=== PATIENT | female | born 1995 | race Two or more races ===

== ENCOUNTER 2022-06-17 21:28 | Inpatient (IN) | payer OTHER, SELFPAY ==
[2022-06-17 21:43] VITALS: BP 112/75; PULSE 84; RESP 18; TEMP 36.8; O2SAT 98; BMI 38.3
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
[2022-06-17 23:30] LABS: MANUAL DIFF FLAG NO
[2022-06-17 23:33] LABS: Basophils Percent Auto 0.4 % (0-2); Eosinophils Absolute Auto 0.1 X10*3/uL (0.0-0.4); Eosinophils Percent Auto 2.4 % (0-4); Hematocrit 39.7 % (37.0-47.0); Hemoglobin 12.9 g/dl (12.0-16.0); Imm Gran Abs Auto 0.02 X10*3/uL (0.00-0.03); Imm Gran Pct Auto 0.4 % (0.0-0.4); Lymphocytes Absolute Auto 1.8 X10*3/uL (1.2-4.9); Lymphocytes Percent Auto 39.5 % (20-40); Mean Corpuscular HGB Conc 32.5 g/dl (31.0-35.0); Mean Corpuscular Hemoglobin 28.9 pg (27.0-33.0); Mean Corpuscular Volume 88.8 fL (80.0-98.0); Mean Platelet Volume 13.2 fL (9.4-12.3); Monocytes Absolute Auto 0.4 X10*3/uL (0.1-1.2); Monocytes Percent Auto 9.3 % (2-11); Neutrophils Absolute Auto 2.2 x10*3/uL (2.0-8.3); Platelet Count 142 X10*3/uL (160-400); Red Blood Count 4.47 X10*6/uL (4.20-5.50); Red Cell Distribution Width 13.1 % (11.0-16.0); White Blood Count 4.5 X10*3/uL (4.8-10.8)
[2022-06-17 23:40] LABS: Appearance Urine Clear; Color Urine Yellow; Glucose Urine UA Negative (Negative); Leukocyte Esterase Urine Negative (Negative); Nitrite Urine Negative (Negative); PH 7.5 (5.0-9.0); Specific Gravity - Urine <= 1.005 (1.005-1.025); Urine Blood Negative (Negative); Urine Ketones Negative (Negative); Urine Protein Negative (Neg-Trace)
[2022-06-17 23:44] LABS: UPreg QC Valid YES; Urine Pregnancy NEGATIVE (NEGATIVE)
[2022-06-17 23:48] LABS: Valproate < 12.5 mcg/mL (50.0-100.0)
[2022-06-17 23:50] LABS: Alanine Aminotransferase 18 U/L (0-31); Alkaline Phosphatase 73 U/L (39-117); Anion Gap 11 (12-20); Aspartate Amino Transferase 19 U/L (5-31); Bilirubin Total 0.3 mg/dL (0.0-1.0); Blood Urea Nitrogen 6 mg/dL (9-16); Calcium 8.9 mg/dL (8.4-10.2); Carbon Dioxide 24 mmol/L (22-29); Chloride 108 mmol/L (96-108); Estimated Glomerular Filt Rate > 60; Ethanol < 10 mg/dL; Glucose Random 87 mg/dL (60-115); Sodium 139 mmol/L (135-145); Total Protein 6.9 g/dL (6.5-8.0)
[2022-06-17 23:58] LABS: COVID-19 Test Negative (Negative); IDNOW Serial# BCCEAD1C
[2022-06-18 00:14] LABS: Amphetamine Screen Urine Not Detected (Not Detect); Barbiturates, Urine Not Detected (Not Detect); Benzodiazepines Screen Urine Not Detected (Not Detect); Cannabinoid Screen Urine POSITIVE (Not Detect); Cocaine Screen Urine Not Detected (Not Detect); Fentanyl, urine Not Detected (Not Detect); Opiate Screen Urine Not Detected (Not Detect); Phencyclidine Screen Urine Not Detected (Not Detect)
[2022-06-18] MEDS: LORazepam 1 MG TABLET 2 MG PO ×2 (00:31→21:19)
[2022-06-18] MEDS: diphenhydrAMINE HCL 25 MG CAPSULE 50 MG PO (00:31)
[2022-06-18] MEDS: OLANZapine 10 MG TABLET PO ×2 (00:31→21:20)
--- NOTE | 2022-06-18 00:58 | ED_ITS ---
HPI - General Adult General Chief complaint: General Medical Stated complaint: crisis Time Seen by Provider: 06/17/22 22:19 Source: patient and RN notes reviewed Mode of arrival: ambulatory History of Present Illness HPI narrative: . Patient with History of depression/bipolar disorder seen by [facility] in the failed advised to go to the hospital to get evaluated. Patient denies any SI/HI/hallucination Related Data Home Medications Medication Instructions Recorded Confirmed meloxicam 15 mg tablet 15 mg PO DAILY PRN moderate pain 06/17/22 06/17/22 olanzapine 5 mg tablet 5 mg PO BEDTIME 06/17/22 06/17/22 tizanidine 2 mg tablet 2 mg PO TID PRN moderate pain 06/17/22 06/17/22 Allergies Allergy/AdvReac Type Severity Reaction Status Date / Time amoxicillin Allergy Rash Verified 06/17/22 21:43 clindamycin Allergy Rash Verified 06/17/22 21:43 NSAIDS (Non-Steroidal Allergy Rash Verified 06/17/22 21:43 Anti-Inflamma Review of Systems Review of Systems: Yes all other systems are reviewed and are negative [facility] Social History Social History Advance Directives: No Advance Directives Information Provided: No Physical Exam ED Vital Signs: Vital Signs - 24 hr 06/17/22 21:43 Temperature 98.3 F Pulse Rate 84 Respiratory Rate 18 Blood Pressure 112/75 Pulse Oximetry 98 Oxygen Delivery Method Room Air BMI result Body Mass Index 38.3 Appearance: Alert. Oriented X3. No acute distress. Eyes: PERRLA, No Nystagmus ENT: Pharynx normal. Oral Mucosa moist Neck: Normal inspection. Neck supple. CVS: Normal heart rate and rhythm. Pulses normal. Respiratory: No respiratory distress. Equal air entry bilateral, no wheezing/rales/rhonchi Abdomen: Soft and nontender. Bowel sounds are present, no mass palpable, no CVA tenderness Skin: Skin warm and dry. Normal skin color. Normal skin turgor. Extremities: No lower extremity edema. No calf tenderness psych:, cooperative depressed denied any SI or HI no hallucination Neuro: Oriented X 3. No motor deficit. No sensory deficit.No cerebellar signs , cranial nerves II-XII intact Medications Administered Discontinued Medications Generic Name Dose Route Start Last Admin Trade Name Freq PRN Reason Stop Dose Admin Diphenhydramine HCl 50 mg 05/10/23 00:27 06/18/22 00:31 Diphenhydramine Hcl 25 Mg Capsule PO 06/18/22 00:28 50 mg ONCE ONE Administration Lorazepam 2 mg 06/18/22 00:27 06/18/22 00:31 Lorazepam 1 Mg Tablet PO 06/18/22 00:28 2 mg ONCE ONE Administration Olanzapine 10 mg 06/18/22 00:20 06/18/22 00:31 Olanzapine 10 Mg Tablet PO 06/18/22 00:21 10 mg ONCE ONE Administration Medical Decision Making Medical Decision Making MDM Narrative: Patient to be seen by care team bipolar disorder of medication adjustment Lab Data MDM Lab Attestation statement: I reviewed the patient's lab results. 06/17/22 23:25 06/17/22 23:25 Labs: Lab Results 06/17/22 06/17/22 06/17/22 Range/Units 23:08 23:08 23:08 WBC (4.8-10.8) X10*3/uL RBC (4.20-5.50) X10*6/uL Hgb (12.0-16.0) g/dl Hct (37.0-47.0) % MCV (80.0-98.0) fL MCH (27.0-33.0) pg MCHC (31.0-35.0) g/dl RDW (11.0-16.0) % Plt Count (160-400) X10*3/uL MPV (9.4-12.3) fL Immature Gran % (Auto) (0.0-0.4) % Neut % (Auto) (45-73) % Lymph % (Auto) (20-40) % Saunders % (Auto) (2-11) % Eos % (Auto) (0-4) % Baso % (Auto) (0-2) % Lymph # (Auto) (1.2-4.9) X10*3/uL Saunders # (Auto) (0.1-1.2) X10*3/uL Eos # (Auto) (0.0-0.4) X10*3/uL Baso # (Auto) (0.0-0.2) X10*3/uL Abs Immat Gran (auto) (0.00-0.03) X10*3/uL Absolute Neuts (auto) (2.0-8.3) x10*3/uL Absolute Nucleated RBC (0.0-0.012) X10*3/uL Nucleated RBC % (auto) (0.0-0.2) /100WBC Sodium (135-145) mmol/L Potassium (3.3-5.1) mmol/L Chloride (96-108) mmol/L Carbon Dioxide (22-29) mmol/L Anion Gap (12-20) BUN (9-16) mg/dL Creatinine (0.5-1.4) mg/dL Estim Creat Clear Calc Estimated GFR Random Glucose (60-115) mg/dL Calcium (8.4-10.2) mg/dL Total Bilirubin (0.0-1.0) mg/dL AST (5-31) U/L ALT (0-31) U/L Alkaline Phosphatase (39-117) U/L Total Protein (6.5-8.0) g/dL Albumin (3.5-5.0) g/dL Urine Color Yellow Urine Appearance Clear Urine pH 7.5 (5.0-9.0) Ur Specific [place] <= 1.005 (1.005-1.025) Urine Protein Negative (Neg-Trace) mg/dL Urine Glucose (UA) Negative (Negative) mg/dL Urine Ketones Negative (Negative) mg/dL Urine Blood Negative (Negative) Urine Nitrite Negative (Negative) Ur Leukocyte Esterase Negative (Negative) Urine Test (NEGATIVE) Urine Opiates Screen Not Detected (Not Detect) Urine Fentanyl Screen Not Detected (Not Detect) Ur Barbiturates Screen Not Detected (Not Detect) Valproic Acid (50.0-100.0) mcg/mL Ur Phencyclidine Scrn Not Detected (Not Detect) Ur Amphetamines Screen Not Detected (Not Detect) U Benzodiazepines Scrn Not Detected (Not Detect) Urine Cocaine Screen Not Detected (Not Detect) U Marijuana (THC) Screen POSITIVE H (Not Detect) Ethyl Alcohol mg/dL COVID-19 (MAGALY) Negative (Negative) COVID-19 Clin Com See Note 06/17/22 06/17/22 06/17/22 Range/Units 23:08 23:25 23:25 WBC 4.5 L (4.8-10.8) X10*3/uL RBC 4.47 (4.20-5.50) X10*6/uL Hgb 12.9 (12.0-16.0) g/dl Hct 39.7 (37.0-47.0) % MCV 88.8 (80.0-98.0) fL MCH 28.9 (27.0-33.0) pg MCHC 32.5 (31.0-35.0) g/dl RDW 13.1 (11.0-16.0) % Plt Count 142 L (160-400) X10*3/uL MPV 13.2 H (9.4-12.3) fL Immature Gran % (Auto) 0.4 (0.0-0.4) % Neut % (Auto) 48.0 (45-73) % Lymph % (Auto) 39.5 (20-40) % Saunders % (Auto) 9.3 (2-11) % Eos % (Auto) 2.4 (0-4) % Baso % (Auto) 0.4 (0-2) % Lymph # (Auto) 1.8 (1.2-4.9) X10*3/uL Saunders # (Auto) 0.4 (0.1-1.2) X10*3/uL Eos # (Auto) 0.1 (0.0-0.4) X10*3/uL Baso # (Auto) 0.0 (0.0-0.2) X10*3/uL Abs Immat Gran (auto) 0.02 (0.00-0.03) X10*3/uL Absolute Neuts (auto) 2.2 (2.0-8.3) x10*3/uL Absolute Nucleated RBC 0.000 (0.0-0.012) X10*3/uL Nucleated RBC % (auto) 0.0 (0.0-0.2) /100WBC Sodium 139 (135-145) mmol/L Potassium 4.0 (3.3-5.1) mmol/L Chloride 108 (96-108) mmol/L Carbon Dioxide 24 (22-29) mmol/L Anion Gap 11 L (12-20) BUN 6 L (9-16) mg/dL Creatinine 0.74 (0.5-1.4) mg/dL Estim Creat Clear Calc 138.0 Estimated GFR > 60 Random Glucose 87 (60-115) mg/dL Calcium 8.9 (8.4-10.2) mg/dL Total Bilirubin 0.3 (0.0-1.0) mg/dL AST 19 (5-31) U/L ALT 18 (0-31) U/L Alkaline Phosphatase 73 (39-117) U/L Total Protein 6.9 (6.5-8.0) g/dL Albumin 4.0 (3.5-5.0) g/dL Urine Color Urine Appearance Urine pH (5.0-9.0) Ur Specific [place] (1.005-1.025) Urine Protein (Neg-Trace) mg/dL Urine Glucose (UA) (Negative) mg/dL Urine Ketones (Negative) mg/dL Urine Blood (Negative) Urine Nitrite (Negative) Ur Leukocyte Esterase (Negative) Urine Test NEGATIVE (NEGATIVE) Urine Opiates Screen (Not Detect) Urine Fentanyl Screen (Not Detect) Ur Barbiturates Screen (Not Detect) Valproic Acid (50.0-100.0) mcg/mL Ur Phencyclidine Scrn (Not Detect) Ur Amphetamines Screen (Not Detect) U Benzodiazepines Scrn (Not Detect) Urine Cocaine Screen (Not Detect) U Marijuana (THC) Screen (Not Detect) Ethyl Alcohol < 10 mg/dL COVID-19 (MAGALY) (Negative) COVID-19 Clin Com 06/17/22 Range/Units 23:25 WBC (4.8-10.8) X10*3/uL RBC (4.20-5.50) X10*6/uL Hgb (12.0-16.0) g/dl Hct (37.0-47.0) % MCV (80.0-98.0) fL MCH (27.0-33.0) pg MCHC (31.0-35.0) g/dl RDW (11.0-16.0) % Plt Count (160-400) X10*3/uL MPV (9.4-12.3) fL Immature Gran % (Auto) (0.0-0.4) % Neut % (Auto) (45-73) % Lymph % (Auto) (20-40) % Saunders % (Auto) (2-11) % Eos % (Auto) (0-4) % Baso % (Auto) (0-2) % Lymph # (Auto) (1.2-4.9) X10*3/uL Saunders # (Auto) (0.1-1.2) X10*3/uL Eos # (Auto) (0.0-0.4) X10*3/uL Baso # (Auto) (0.0-0.2) X10*3/uL Abs Immat Gran (auto) (0.00-0.03) X10*3/uL Absolute Neuts (auto) (2.0-8.3) x10*3/uL Absolute Nucleated RBC (0.0-0.012) X10*3/uL Nucleated RBC % (auto) (0.0-0.2) /100WBC Sodium (135-145) mmol/L Potassium (3.3-5.1) mmol/L Chloride (96-108) mmol/L Carbon Dioxide (22-29) mmol/L Anion Gap (12-20) BUN (9-16) mg/dL Creatinine (0.5-1.4) mg/dL Estim Creat Clear Calc Estimated GFR Random Glucose (60-115) mg/dL Calcium (8.4-10.2) mg/dL Total Bilirubin (0.0-1.0) mg/dL AST (5-31) U/L ALT (0-31) U/L Alkaline Phosphatase (39-117) U/L Total Protein (6.5-8.0) g/dL Albumin (3.5-5.0) g/dL Urine Color Urine Appearance Urine pH (5.0-9.0) Ur Specific [place] (1.005-1.025) Urine Protein (Neg-Trace) mg/dL Urine Glucose (UA) (Negative) mg/dL Urine Ketones (Negative) mg/dL Urine Blood (Negative) Urine Nitrite (Negative) Ur Leukocyte Esterase (Negative) Urine Test (NEGATIVE) Urine Opiates Screen (Not Detect) Urine Fentanyl Screen (Not Detect) Ur Barbiturates Screen (Not Detect) Valproic Acid < 12.5 L (50.0-100.0) mcg/mL Ur Phencyclidine Scrn (Not Detect) Ur Amphetamines Screen (Not Detect) U Benzodiazepines Scrn (Not Detect) Urine Cocaine Screen (Not Detect) U Marijuana (THC) Screen (Not Detect) Ethyl Alcohol mg/dL COVID-19 (MAGALY) (Negative) COVID-19 Clin Com Discharge Plan Discharge Clinical Impression: Bipolar 1 disorder, mixed Patient Disposition: Still a Patient Prescriptions: No Action tizanidine 2 mg tablet 2 mg PO TID PRN (Reason: moderate pain) meloxicam 15 mg tablet 15 mg PO DAILY PRN (Reason: moderate pain) olanzapine 5 mg tablet 5 mg PO BEDTIME
--- NOTE | 2022-06-18 04:35 | PC.NURSE ---
Patient slept through the night, no distress observed/reported, patient exhibiting dysregulated behavior secondary to non med-compliant, med rec completed/pending provider's approval, Olanzapine 10 mg po, Ativan 2 mg po, and Benadryl 50 mg po administered with + effect, VSS, labs completed/resulted, disposition per [facility] from community is section inpatient bed search, will continue to monitor.
[2022-06-18 06:15] VITALS: BP 89/51; PULSE 72; RESP 18; TEMP 36.6; O2SAT 99
--- NOTE | 2022-06-18 08:23 | ECG_ITS ---
Test Reason : PROLONGED QT Blood Pressure : / mmHG Vent. Rate : 069 BPM Atrial Rate : 069 BPM P-R Int : 138 ms QRS Dur : 084 ms QT Int : 402 ms P-R-T Axes : 050 026 065 degrees QTc Int : 430 ms Sinus rhythm with marked sinus arrhythmia Otherwise normal ECG No previous ECGs available Referred By: Beau Monroy Electronically Signed By:CHRISTIANO GUO
[2022-06-18] MEDS: Divalproex Sodium ER 500 MG TAB.ER.24H PO (09:23)
--- NOTE | 2022-06-18 11:30 | PC.NURSE ---
Pt calm and cooperative. Reports depression. Having AH/VH. Pt spoke with Mother on phone, took shower, took meds. ate breakfast, is especially fond of [place] with crumbled Gram Crackers
[2022-06-18] MEDS: Nicotine Polacrilex 2 MG GUM BUCCAL ×2 (11:58→19:44)
[2022-06-18 16:47] VITALS: BP 97/68; PULSE 57; RESP 16; TEMP 36.5; O2SAT 96
[2022-06-18 17:57] VITALS: BP 106/64; PULSE 80; RESP 18; TEMP 36.6; O2SAT 96; BMI 37.1
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
[2022-06-18] MEDS: hydrOXYzine HCL 25 MG TABLET PO (18:48)
[2022-06-18] MEDS: TiZANidine HCL 4 MG TABLET 2 MG PO (18:48)
[2022-06-18] MEDS: NaPROXEN 500 MG TABLET PO (18:48)
[2022-06-18] MEDS: OLANZapine 5 MG TABLET PO (21:20)
[2022-06-18] MEDS: Acetaminophen 325 MG TABLET 650 MG PO (21:54)
[2022-06-19] MEDS: Magnesium Hydrox/Alum Hydrox 30 ML ORAL.SUSP PO (02:36)
[2022-06-19] MEDS: hydrOXYzine HCL 25 MG TABLET PO (02:36)
[2022-06-19] MEDS: LORazepam 1 MG TABLET 2 MG PO (02:42)
[2022-06-19] MEDS: OLANZapine 10 MG TABLET PO (02:43)
--- NOTE | 2022-06-19 02:54 | PC.NURSE ---
Patient in shower at this time, reported she vomited in the shower. Patient was given Maalox, Atarax PO prn, Ativan PO prn, and Zyprexa 10 mg PO prn 5 minutes afterwards.
[2022-06-19] MEDS: Ondansetron ODT 8 MG TAB.RAPDIS TRANSLINGU (03:22)
[2022-06-19 09:08] LABS: Estimated Average Glucose 97 mg/dL
[2022-06-19 09:32] LABS: Alanine Aminotransferase 17 U/L (0-31); Albumin Level 3.4 g/dL (3.5-5.0); Alkaline Phosphatase 69 U/L (39-117); Anion Gap 9 (12-20); Aspartate Amino Transferase 17 U/L (5-31); Bilirubin Total 0.2 mg/dL (0.0-1.0); Blood Urea Nitrogen 10 mg/dL (9-16); Calcium 8.8 mg/dL (8.4-10.2); Carbon Dioxide 27 mmol/L (22-29); Chloride 109 mmol/L (96-108); Cholesterol 110 mg/dL; Estimated Glomerular Filt Rate > 60; Glucose Fasting 89 mg/dL (60-99); HDL Cholesterol 32 mg/dL; LDL Cholesterol Calculated 59 mg/dl; Potassium 4.6 mmol/L (3.3-5.1); Sodium 140 mmol/L (135-145); Triglycerides 96 mg/dL
[2022-06-19 10:01] LABS: Folate 5.5 ng/mL (> or = 4.0); Free T4 (Free Thyroxine) 0.95 ng/dL (0.71-1.85); Thyroid Stimulating Hormone 1.31 uIU/mL (0.32-4.0); Vitamin B12 571 pg/mL (200-900)
[2022-06-19 12:00] VITALS: BP 103/61; PULSE 106; RESP 18; TEMP 36.6; O2SAT 99
[2022-06-19] MEDS: Divalproex Sodium ER 500 MG TAB.ER.24H PO ×2 (12:07→21:27)
[2022-06-19] MEDS: Nicotine Polacrilex 2 MG GUM BUCCAL ×3 (12:23→21:43)
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
[2022-06-19] MEDS: TiZANidine HCL 4 MG TABLET 2 MG PO ×2 (16:22→23:15)
[2022-06-19 18:00] VITALS: BP 97/53; PULSE 79; RESP 18; TEMP 36.6; O2SAT 99
[2022-06-19] MEDS: OLANZapine 5 MG TABLET PO (21:27)
[2022-06-19] MEDS: Clotrimazole 1 % Vaginal Cream 45 GM TUBE 1 APPL VAGINAL (21:43)
[2022-06-19] MEDS: traZODone HCL 50 MG TABLET PO (23:15)
[2022-06-20] MEDS: TiZANidine HCL 4 MG TABLET 2 MG PO ×3 (06:57→21:59)
[2022-06-20] MEDS: Acetaminophen 325 MG TABLET 975 MG PO ×2 (06:59→15:34)
[2022-06-20] MEDS: hydrOXYzine HCL 25 MG TABLET PO ×2 (06:59→22:02)
[2022-06-20 08:20] VITALS: BP 93/61; PULSE 110; RESP 18; TEMP 36.6; O2SAT 97
[2022-06-20] MEDS: LORazepam 1 MG TABLET 2 MG PO (11:23)
[2022-06-20] MEDS: Nicotine Polacrilex 2 MG GUM BUCCAL ×2 (11:28→21:59)
[2022-06-20 14:47] LABS: UPreg QC Valid YES; Urine Pregnancy NEGATIVE (NEGATIVE)
--- NOTE | 2022-06-20 15:34 | P.PNPSI_ITS ---
Subjective Subjective Date of Service: 06/20/22 Reason For Visit: Psychosis Interim History: pt much more organized and less labile than yesterday, however continues to be severely impaired. initially says she wants to be on invega sustenna, then says no oral invega only, then wants to stay on zyprexa. notes her VPA dose is too low as well, pt agrees to increase it from 500 mg daily to 1500 mg daily. concerned she is , asking questions about safety of use of medications during . visit with her mother today. per staff, both pt and mother were agitated and yelling at them around limit-setting (eating in the room). 3- day up thursday. pleasant. c/o anxiety. c/o pain/bleeding s/p removal of IUD. feels improved on meds. Mental Status Exam Mental Status Exam Narrative: disheveled, calm, cooperative. no PMA, general PMR, alert. speech decr rate, nml amount, nml loudness. nml latency. thoughts more organized. affect constricted. no SI/HI/AVH expressed. Diagnostics Vital Signs (24Hr): Vital Signs - 24 hr 06/19/22 18:00 06/20/22 08:20 Temperature 97.9 F 97.9 F Pulse Rate 79 110 H Respiratory Rate 18 18 Blood Pressure 97/53 L 93/61 Pulse Oximetry 99 97 Oxygen Delivery Method Room Air Room Air BMI result Body Mass Index 37.1 Labs 06/17/22 23:25 06/19/22 08:41 Labs: Laboratory Results - last 48 hr 06/19/22 06/19/22 06/20/22 08:41 08:41 14:00 Sodium 140 Potassium 4.6 Chloride 109 H Carbon Dioxide 27 Anion Gap 9 L BUN 10 Creatinine 0.68 Estim Creat Clear Calc 153.0 Estimated GFR > 60 Fasting Glucose 89 Estimat Average Glucose 97 Hemoglobin A1c % 5.0 Calcium 8.8 Total Bilirubin 0.2 AST 17 ALT 17 Alkaline Phosphatase 69 Total Protein 6.0 L Albumin 3.4 L Triglycerides 96 Cholesterol 110 LDL Cholesterol, Calc 59 HDL Cholesterol 32 Vitamin B12 571 Folate 5.5 TSH 1.31 Free T4 0.95 Urine Test NEGATIVE Medications Medications Current Medications Acetaminophen (Acetaminophen 325 Mg Tablet) 975 mg PO Q6H PRN PRN Reason: Pain, Moderate(Pain Scale 4-6) Last Admin: 06/20/22 06:59 Dose: 975 mg Al Hydroxide/Mg Hydroxide (Magnesium Hydrox/Alum Hydrox 30 Ml Oral.Susp) 30 ml PO Q6H PRN PRN Reason: Heartburn/Nausea Last Admin: 06/19/22 02:36 Dose: 30 ml Clotrimazole (Clotrimazole 1 % Vaginal Cream 45 Gm Tube) 1 appl VAGINAL BEDTIME SHELLI Stop: 06/25/22 21:01 Last Admin: 06/19/22 21:43 Dose: 1 appl Divalproex Sodium (Divalproex Sodium Er 500 Mg Tab.Er.24h) 1,500 mg PO BEDTIME SHELLI Hydroxyzine HCl (Hydroxyzine Hcl 25 Mg Tablet) 25 mg PO Q6H PRN PRN Reason: Anxiety Last Admin: 06/20/22 06:59 Dose: 25 mg Magnesium Hydroxide (Milk Of Magnesia 30 Ml Oral.Susp) 30 ml PO DAILY PRN PRN Reason: Constipation Nicotine Polacrilex (Nicotine Polacrilex 2 Mg Gum) 2 mg BUCCAL ONCE PRN PRN Reason: Nicotine Cravings Last Admin: 06/20/22 11:28 Dose: 2 mg Nicotine Polacrilex (Nicotine Polacrilex 2 Mg Gum) 2 mg BUCCAL Q2H PRN PRN Reason: Nicotine Cravings Last Admin: 06/19/22 21:43 Dose: 2 mg Olanzapine (Olanzapine 10 Mg Tablet) 10 mg PO BEDTIME SHELLI Tizanidine HCl (Tizanidine Hcl 4 Mg Tablet) 2 mg PO TID PRN PRN Reason: moderate pain Last Admin: 06/20/22 06:57 Dose: 2 mg Trazodone HCl (Trazodone Hcl 50 Mg Tablet) 50 mg PO BEDTIME MRX1 PRN PRN Reason: Insomnia Last Admin: 06/19/22 23:15 Dose: 50 mg Allergies Allergies Allergy/AdvReac Type Severity Reaction Status Date / Time amoxicillin Allergy Rash Verified 06/17/22 21:43 clindamycin Allergy Rash Verified 06/17/22 21:43 NSAIDS (Non-Steroidal Allergy Rash Verified 06/17/22 21:43 Anti-Inflamma Assessment & Plan Assessment & Plan (1) Bipolar 1 disorder, mixed: Status: Acute Code(s): F31.60 - Bipolar disorder, current episode mixed, unspecified Plan 06/19: restart VPA 500 mg daily and zyprexa 5 mg QHS. change depakote to HS. supportive care otherwise. 06/20: increase VPA at HS to 1500 mg. increase zyprexa at HS to 10 mg. more linear, logical, and organized than yesterday, although not well. Patient educated on: diagnosis and medication risk/benefits Reason for continued inpatient stay Substantial Risk for: inability to function and rapid decompensation Time Spent With Patient Time: Total time managing care of this patient today __25__ minutes.
[2022-06-20 21:23] VITALS: BP 106/59; PULSE 117; RESP 18; TEMP 36.3; O2SAT 97
[2022-06-20] MEDS: traZODone HCL 50 MG TABLET PO (21:59)
[2022-06-20] MEDS: OLANZapine 10 MG TABLET PO (22:00)
[2022-06-20] MEDS: Divalproex Sodium ER 500 MG TAB.ER.24H 1500 MG PO (22:01)
[2022-06-20] MEDS: Clotrimazole 1 % Vaginal Cream 45 GM TUBE 1 APPL VAGINAL (22:02)
[2022-06-21] MEDS: Acetaminophen 325 MG TABLET 975 MG PO ×2 (06:23→12:36)
[2022-06-21] MEDS: TiZANidine HCL 4 MG TABLET 2 MG PO ×3 (06:24→22:03)
[2022-06-21] MEDS: Nicotine Polacrilex 2 MG GUM BUCCAL ×2 (06:26→20:22)
[2022-06-21 09:45] VITALS: BP 90/55; PULSE 83; RESP 16; TEMP 36.8; O2SAT 94
--- NOTE | 2022-06-21 10:12 | HO.PSYCHPN ---
Subjective Subjective Date of Service: 06/21/22 Reason For Visit: Psychosis Subjective Notes: 3 Day Healthcare Proxy: No Guardianship: No Medical Problems Affecting Mental Status: Yes (back pain) Interim History: Pt was agitated and manic, according to nursing- pt now slept - Telling provider she wants to be transfered to another hospital - told her that is not generally done- pt was last at [facility] Denies si/hi/psychosis but appears guarded, Medication Compliance: Yes Side effects from medications: No Attending Groups: No Review of Systems Acute medical concerns: No back pain not new Mental Status Exam Mental Status Exam Patient Appearance: Unkempt Patient Orientation: Person, Place and Situation Level of Consciousness: Awake Patient Behavior: Guarded, Resistive to Care and Good Eye Contact Mood Description: Calm and Suspicious Affect Description: Apprehensive Patient Cognition Impaired: No Ability to Follow Directions: Fair Speech Pattern: Clear and Impoverished Hallucinations: Auditory Thought Process: Goal Oriented Thought Content: positive for Intact Depressive Symptoms: Increased Anxiety, Muscle Tension and Back Pain Judgement: Fair Diagnostics Vital Signs (24Hr): Vital Signs - 24 hr 06/20/22 21:23 Temperature 97.4 F Pulse Rate 117 H Respiratory Rate 18 Blood Pressure 106/59 L Pulse Oximetry 97 Oxygen Delivery Method Room Air BMI result Body Mass Index 37.1 Labs 06/17/22 23:25 06/19/22 08:41 Labs: Laboratory Results - last 48 hr 06/20/22 14:00 Urine Test NEGATIVE Medications Medications Current Medications Acetaminophen (Acetaminophen 325 Mg Tablet) 975 mg PO Q6H PRN PRN Reason: Pain, Moderate(Pain Scale 4-6) Last Admin: 06/21/22 06:23 Dose: 975 mg Al Hydroxide/Mg Hydroxide (Magnesium Hydrox/Alum Hydrox 30 Ml Oral.Susp) 30 ml PO Q6H PRN PRN Reason: Heartburn/Nausea Last Admin: 06/19/22 02:36 Dose: 30 ml Clotrimazole (Clotrimazole 1 % Vaginal Cream 45 Gm Tube) 1 appl VAGINAL BEDTIME SHELLI Stop: 06/25/22 21:01 Last Admin: 06/20/22 22:02 Dose: 1 appl Divalproex Sodium (Divalproex Sodium Er 500 Mg Tab.Er.24h) 1,500 mg PO BEDTIME SHELLI Last Admin: 06/20/22 22:01 Dose: 1,500 mg Hydroxyzine HCl (Hydroxyzine Hcl 25 Mg Tablet) 25 mg PO Q6H PRN PRN Reason: Anxiety Last Admin: 06/20/22 22:02 Dose: 25 mg Magnesium Hydroxide (Milk Of Magnesia 30 Ml Oral.Susp) 30 ml PO DAILY PRN PRN Reason: Constipation Nicotine Polacrilex (Nicotine Polacrilex 2 Mg Gum) 2 mg BUCCAL ONCE PRN PRN Reason: Nicotine Cravings Last Admin: 06/20/22 21:59 Dose: 2 mg Nicotine Polacrilex (Nicotine Polacrilex 2 Mg Gum) 2 mg BUCCAL Q2H PRN PRN Reason: Nicotine Cravings Last Admin: 06/21/22 06:26 Dose: 2 mg Olanzapine (Olanzapine 10 Mg Tablet) 10 mg PO BEDTIME SHELLI Last Admin: 06/20/22 22:00 Dose: 10 mg Tizanidine HCl (Tizanidine Hcl 4 Mg Tablet) 2 mg PO TID PRN PRN Reason: moderate pain Last Admin: 06/21/22 06:24 Dose: 2 mg Trazodone HCl (Trazodone Hcl 50 Mg Tablet) 50 mg PO BEDTIME MRX1 PRN PRN Reason: Insomnia Last Admin: 06/20/22 21:59 Dose: 50 mg Allergies Allergies Allergy/AdvReac Type Severity Reaction Status Date / Time amoxicillin Allergy Rash Verified 06/17/22 21:43 clindamycin Allergy Rash Verified 06/17/22 21:43 NSAIDS (Non-Steroidal Allergy Rash Verified 06/17/22 21:43 Anti-Inflamma Assessment & Plan Assessment & Plan (1) Bipolar 1 disorder, mixed: Status: Acute Code(s): F31.60 - Bipolar disorder, current episode mixed, unspecified Assessment and Plan: change trazodone to olanzapine for sleep prn Plan 06/19: restart VPA 500 mg daily and zyprexa 5 mg QHS. change depakote to HS. supportive care otherwise. 06/20: increase VPA at HS to 1500 mg. increase zyprexa at HS to 10 mg. more linear, logical, and organized than yesterday, although not well. Patient educated on: medication risk/benefits and therapeutic strategies Informed Consent: further education needed Reason for continued inpatient stay Substantial Risk for: rapid decompensation Time Spent With Patient Time: Total time managing care of this patient today ____ minutes.
[2022-06-21] MEDS: hydrOXYzine HCL 25 MG TABLET PO (10:15)
[2022-06-21 13:32] VITALS: BP 99/59; PULSE 87; RESP 18; O2SAT 98
[2022-06-21 13:33] VITALS: BP 103/64; PULSE 104; RESP 20; O2SAT 98
[2022-06-21] MEDS: Milk of Magnesia 30 ML ORAL.SUSP PO (20:22)
[2022-06-21 20:45] VITALS: BP 112/62; PULSE 69; RESP 18; TEMP 36.2; O2SAT 98
[2022-06-21] MEDS: Clotrimazole 1 % Vaginal Cream 45 GM TUBE 1 APPL VAGINAL (22:03)
[2022-06-21] MEDS: Divalproex Sodium ER 500 MG TAB.ER.24H 1500 MG PO (22:04)
[2022-06-21] MEDS: OLANZapine 10 MG TABLET PO (22:06)
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
[2022-06-22] MEDS: Acetaminophen 325 MG TABLET 975 MG PO (12:24)
[2022-06-22] MEDS: hydrOXYzine HCL 25 MG TABLET PO ×2 (12:25→20:53)
[2022-06-22] MEDS: TiZANidine HCL 4 MG TABLET 2 MG PO ×2 (12:25→20:53)
[2022-06-22] MEDS: Magnesium Hydrox/Alum Hydrox 30 ML ORAL.SUSP PO (12:25)
[2022-06-22] MEDS: Nicotine Polacrilex 2 MG GUM BUCCAL ×2 (13:48→17:53)
[2022-06-22] MEDS: Gabapentin 100 MG CAPSULE PO ×2 (14:31→20:53)
[2022-06-22 20:30] VITALS: BP 98/61; PULSE 88; RESP 18; TEMP 36.7; O2SAT 97
[2022-06-22] MEDS: OLANZapine 10 MG TABLET PO (20:53)
[2022-06-22] MEDS: Clotrimazole 1 % Vaginal Cream 45 GM TUBE 1 APPL VAGINAL (20:53)
[2022-06-22] MEDS: Divalproex Sodium ER 500 MG TAB.ER.24H 1500 MG PO (20:53)
[2022-06-23] MEDS: Gabapentin 100 MG CAPSULE PO (09:33)
[2022-06-23] MEDS: Nicotine Polacrilex 2 MG GUM BUCCAL (10:37)
[2022-06-23 10:43] LABS: MANUAL DIFF FLAG NO
[2022-06-23 10:49] LABS: Basophils Percent Auto 0.5 % (0-2); Eosinophils Absolute Auto 0.1 X10*3/uL (0.0-0.4); Eosinophils Percent Auto 3.8 % (0-4); Hemoglobin 13.8 g/dl (12.0-16.0); Imm Gran Abs Auto 0.04 X10*3/uL (0.00-0.03); Imm Gran Pct Auto 1.1 % (0.0-0.4); Lymphocytes Absolute Auto 1.4 X10*3/uL (1.2-4.9); Lymphocytes Percent Auto 37.5 % (20-40); Mean Corpuscular HGB Conc 32.1 g/dl (31.0-35.0); Mean Corpuscular Hemoglobin 28.9 pg (27.0-33.0); Mean Platelet Volume 11.8 fL (9.4-12.3); Monocytes Absolute Auto 0.4 X10*3/uL (0.1-1.2); Monocytes Percent Auto 10.6 % (2-11); Neutrophils Absolute Auto 1.7 x10*3/uL (2.0-8.3); Neutrophils Percent Auto 46.5 % (45-73); Platelet Count 175 X10*3/uL (160-400); Red Blood Count 4.78 X10*6/uL (4.20-5.50); Red Cell Distribution Width 13.1 % (11.0-16.0); White Blood Count 3.7 X10*3/uL (4.8-10.8)
[2022-06-23 11:40] LABS: Valproate 88.7 mcg/mL (50.0-100.0)
[2022-06-23 11:44] LABS: Alanine Aminotransferase 23 U/L (0-31); Albumin Level 3.8 g/dL (3.5-5.0); Alkaline Phosphatase 68 U/L (39-117); Anion Gap 10 (12-20); Aspartate Amino Transferase 17 U/L (5-31); Bilirubin Direct 0.1 mg/dL (0.0-0.5); Bilirubin Total 0.4 mg/dL (0.0-1.0); Blood Urea Nitrogen 10 mg/dL (9-16); Calcium 9.2 mg/dL (8.4-10.2); Carbon Dioxide 26 mmol/L (22-29); Chloride 105 mmol/L (96-108); Creatinine Clr Calc Pharmacy 146.5; Estimated Glomerular Filt Rate > 60; Glucose Random 103 mg/dL (60-115); Potassium 3.8 mmol/L (3.3-5.1); Sodium 137 mmol/L (135-145); Total Protein 6.8 g/dL (6.5-8.0)
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
[2022-06-23 11:49] LABS: Ammonia 67 umol/L (13-55)
--- NOTE | 2022-06-23 13:24 | PC.NURSE ---
1325 reviewed instructions and medications with patient. She verbalized understanding of instructions medications and appointments. Pt denies SI/HI/AH/VH at this time. Alka said she has a good support sytem in place with her family to include mother and grandmother. 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
== END 2022-06-23 13:25 | disposition home or self-care (01) | DRG 753 ==
LOC: HO.ED 06-18 11:23 → HO.PADLT16 06-18 15:36
PROVIDERS: Internal Medicine; Admitting Provider Psychiatry & Neurology Psychiatry; Emergency Provider Emergency Medicine Emergency Medical Services; Visit Provider Psychiatry & Neurology Psychiatry
DX: F31.60 Bipolar disorder, current episode mixed, unspecified (principal); F17.210 Nicotine dependence, cigarettes, uncomplicated; Z71.6 Tobacco abuse counseling; Z20.822 Contact with and (suspected) exposure to COVID-19; Z88.0 Allergy status to penicillin; Z88.1 Allergy status to other antibiotic agents; Z88.6 Allergy status to analgesic agent; Z79.899 Other long term (current) drug therapy
CPT/HCPCS: 36415; 80048; 80053; 80061; 80076; 80164; 80307; 81003; 81025; 82140; 82607; 82746; 83036; 84439; 84443; 85025; 87635; 93005; 99285

== ENCOUNTER 2024-10-11 15:14 | Outpatient (REF) | payer OTHER, SELFPAY ==
--- OUTSIDE RECORDS SUMMARY | 2016-03-28 10:00 | XMS_ITS | Continuity of Care Document ---
Author Organization [facility] Address [address] [place] [address] Phone Care Team Providers Care Knotter Name Role Phone Figueroa Campbell DDS Unavailable Unavailable Medications Medication Instructions Dosage Effective Dates (start - stop) Status Comments Percocet 10 mg-325 mg tablet take 1 tablet by oral route every 6 hours as needed 1.00 tablet - Active Motrin IB 200 mg tablet take 1 tablet by oral route every 6 hours as needed with food 200 MG - Active Augmentin 125 mg-31.25 mg/5 mL oral suspension take 20 milliliter by oral route every 8 hours 20.00 milliliter - Active Procedures Procedure Date Dental Intake Limited Oral Evaluation: Problem Focused Intraoral: Periapical First Film 2016 Dental Note Approval Code Advance Directives Directive Yes / No Effective Date File Name No Information Encounters Encounter Description Practice Location Reason(s) For Visit Diagnoses Date Provider [facility], [address] [place], [address], tel:[phone] Edwige Pugh Encounter for dental exam and cleaning w/o abnormal findings 2016 Shannan Marti. [address], [id number] [address] [place] [address], [address], . tel:[phone] Family History Family Member Type Diagnosis Age At Onset No Information Payers Payer name Insurance type Covered democrat ID Authoriza tion(s) DENTAL [facility] CI [id number] Social History Type Description Quantity Date Captured Comments Sex Female Smoking Status No Information Chief Complaint And Reason For Visit No Information History Of Present Illness Encounter Date Complaint History Of Prese nt Illness No Information Instructions Date Instruction Additional Infor mation No Information Assessments Type Assessment Date No Information
--- NOTE | ~2024-10-11 | XR_ITS ---
Exam: Three-view bilateral feet INDICATION: Foot pain TECHNIQUE: AP, lateral, oblique views lower extremity, bilateral feet x-rays Prior: None FINDINGS: Right foot: No acute fractures identified. No degenerative changes are evident. There is no joint diastases or malalignment. Left foot: No acute fractures identified. No degenerative changes are evident. There is no joint diastases or malalignment. XR/XR Foot [place] 3V IMPRESSION: Unremarkable bilateral feet. Electronically signed by: Hernandez Peguero MD 10/11/2024 04:56 PM EDT
== END 2024-10-11 15:15 | disposition home or self-care (01) ==
LOC: HO.XRAY 15:14
PROVIDERS: PCP Internal Medicine; Visit Provider Nurse Practitioner Family
DX: M79.671 Pain in right foot (principal); M79.672 Pain in left foot; M54.50 Low back pain, unspecified; E66.01 Morbid (severe) obesity due to excess calories; Z68.41 Body mass index [BMI] 40.0-44.9, adult
CPT/HCPCS: 73630; 99202

== ENCOUNTER 2024-10-11 15:14 | Outpatient (AMB) | payer OTHER, SELFPAY ==
--- NOTE | 2024-10-11 15:16 | A.OFFVIS_ITS ---
Vital Signs 3 10/11/24 15:25 Height 5 ft 6 in Weight 272 lb BMI 43.9 BP 122/78 Blood Pressure Location Lt brachial Position Sitting Pulse 110 H Pulse Source Pulse Oximeter Pulse Oximetry (%) 100 Oxygen Delivery Method Room Air Intake Visit Reasons: LOWER EXTREMITY PAIN Intake Note: Pain today 09/18 Assistance Coordinator Required: No Accompanied by: Self / Same As Patient Allergies amoxicillin Allergy (Verified 10/11/24 15:25) Rash clindamycin Allergy (Verified 10/11/24 15:25) Rash Medication List - Last Reconciled 10/11/24 by MENDEZ Edge cholecalciferol (vitamin D3) 25 mcg PO DAILY clotrimazole 1% 1 appl vaginal BEDTIME 4 days divalproex ER 1,500 mg (3 x 500 mg) PO BEDTIME 30 days hydroxyzine HCl 25 mg PO BID PRN 30 days olanzapine 10 mg PO BEDTIME 30 days HPI Comments Details: The patient is a 29-year-old female presenting with bilateral lower extremity pain. The pain is described as stabbing, throbbing, and aching, particularly exacerbated by walking and climbing stairs as she lives on [address]th floor, and has been present for over a year without any clear underlying back disease or neuropathy etiology. She has tried multiple medications, including gabapentin and Celebrex, without relief, and has been referred to Rheumatology for further evaluation. She denies previous Orthopedic evaluation of bilateral ankle and foot pain. The patient has a history of schizophrenia and post-traumatic stress disorder, which are managed with psychiatric medications. She also suffers from major depressive disorder and severe obesity, which have contributed to her current health status. Her obesity is being addressed with Zepbound injections for weight loss, although she has not yet started this treatment. The patient reports significant weight gain over the past year, attributing it to depression and reduced physical activity. She has been engaged in physical therapy through the [facility] program, attending twice a week for several months, but reports no improvement in her symptoms. Previous imaging, including ankle x-rays and ultrasounds, have shown no fractures or blood clots, only soft tissue swelling. - Onset: Over a year ago, without clear inciting event - Quality: Stabbing, throbbing, aching, pulsing, pounding, cramping, sore, hurting, aching, heavy - Location: Bilateral lower extremities, below the knees, with worse pain in the ankles - Exacerbating factors: Walking, climbing stairs, physical activity - Relieving factors: Resting, laying down - Interference: Difficult ambulation, impacts daily activities - Affect: Depression and reduced physical activity due to pain - Analgesia: Tried gabapentin and Celebrex without relief; current pain level not specified - Adverse Effects: None reported from current medications - Activities of Daily Living: Pain interferes with walking and daily activities - Aberrant Drug Related Behaviors: None reported [facility] Medical History (Updated 10/11/24 @ 16:23 by MENDEZ Edge) Cigarette smoker Constipation PTSD (post-traumatic stress disorder) Major depressive disorder Social History Household Members: Other Household Members Other:: grandmother/mom Housing: Homeless Do you presently have visiting nurse or other home services: No Alcohol intake: current Alcohol intake frequency: a few times a week Alcohol type: wine and hard liquor Patient Tobacco Use Status: Current someday Tobacco user Tobacco use type: Cigarette Cigarette Packs Per Day: 1 Cigarettes Per Day: 20.0 Years Smoked: 5 e-Cigarette/Vaping Use: Currently Using Second Hand Smoke Exposure: Yes Substance Use Type: Marijuana service: No Sexual orientation: Don't Know Review of Systems Const Details: - Musculoskeletal: Reports bilateral lower extremity pain, difficulty ambulating, and swelling in ankles - Neurological: Denies clear underlying back disease or neuropathy - Psychiatric: Reports depression, history of schizophrenia and PTSD All systems reviewed & are unremarkable except as noted in HPI and below Physical Exam General: Appears afebrile. Morbidly obese. Alert and oriented. Mood and affect appropriate. Follows and participates in conversation appropriately. Respiratory effort is unlabored. No cough. Able to transition from sit to stand unassisted. Ambulates with bilaterally normal heel strike and toe off. General: Yes no CVA tenderness Back/Spine/Pelvis Back: no CVA tenderness Cervical Spine: cervical ROM normal and No Cervical spine tenderness Thoracic/Lumbar Spine: thoracic and lumbar spine normal to inspection, No Thoracic/lumbar spine scar(s), Lasegue's sign negative, straight leg raise negative bilaterally, pain with thoraco-lumbar ROM, paraspinal muscle tenderness, thoraco-lumbar ROM limited, No thoracic spinal tenderness and No lumbar spinal tenderness Sacroiliac joints: bilaterally nontender Extrem General: Yes capillary refill normal, Yes no clubbing, cyanosis or edema and Yes no calf tenderness Right lower extremity: foot Details: normal capillary refill, normal to inspection, tenderness Location: of the lateral foot, no edema, vascular exam Details: dorsalis pedis pulse present, posterior tibial pulse present and normal capillary refill; no cyanosis and motor-sensory exam Details: light-touch normal and pin-prick normal; no unusual warmth, no ecchymosis and no crepitus Left lower extremity: foot Details: normal capillary refill, normal to inspection, tenderness Location: of the lateral foot, toes with normal ROM, no edema, vascular exam Details: dorsalis pedis pulse present, posterior tibial pulse present and normal capillary refill; no cyanosis and motor-sensory exam Details: light-touch normal and pin-prick normal; no unusual warmth, no ecchymosis and no crepitus Results Reviewed Results Reviewed: Assessment & Plan Assessment & Plan (1) Bilateral foot pain: Code(s): M79.671 - Pain in right foot; M79.672 - Pain in left foot Category: Medical (2) Morbid obesity with BMI of 40.0-44.9, adult: Code(s): E66.01 - Morbid (severe) obesity due to excess calories; Z68.41 - Body mass index [BMI] 40.0-44.9, adult Category: Medical (3) Low back pain: Code(s): M54.50 - Low back pain, unspecified Category: Medical Plan The plan includes a referral to Orthopedics to evaluate the joint condition and rule out any Orthopedic issues. If the Orthopedic evaluation is negative, an EMG will be conducted to rule out neuropathy. Patient requests Orthopedic referral near home location. The patient is advised to continue with weight management strategies and to maintain daily physical activity, adequate hydration, well balanced diet and food diary to identify eating patterns. Further Rheumatology evaluation is pending to rule out any autoimmune causes for the joint pain. The patient is encouraged to continue working with her psychiatrist and therapist to manage her psychiatric conditions. All questions and concerns have been answered and patient agreed with the treatment plan. Follow up for xray results/after Orthopedic evaluation and sooner as needed. Orders: Orders 2 XR foot LT min 3V Today M79.671 - Pain in right foot, M79.672 - Pain in left foot Referrals 2 Orthopedics Referral M79.671 - Pain in right foot, M79.672 - Pain in left foot Coding Level of Care Code New Pt Level 4 (60898) Diagnoses Bilateral foot pain M79.671; M79.672 Morbid obesity with BMI of 40.0-44.9, adult E66.01; Z68.41 Low back pain M54.50
[2024-10-11 15:25] VITALS: BP 122/78; PULSE 110; O2SAT 100; BMI 43.9
--- OUTSIDE RECORDS SUMMARY | 2024-10-11 16:22 | XMS_ITS ---
Author Name [facility] Organization Unknown Encounters Encounter Type Encounter Reason Primary Diagnosis Location Date Emergency Dorsalgia, unspecified [facility] 05/16/2022 Emergency Dorsalgia, unspecified [employer] [facility] 05/08/2022 Emergency Headache, unspecified [facility] 05/06/2022 Emergency Otitis media, unspecified, right ear [facility] 04/02/2022 Emergency Homelessness unspecified [facility] 02/13/2022 Care Team Organization Name Specialty Phone Email Start Date End Da te [facility] 04/02/2022 [facility] 02/13/2022 02/13/2022
== END 2024-10-11 15:47 | disposition home or self-care (01) ==
LOC: HO.PMC 15:15
PROVIDERS: PCP Internal Medicine; Visit Provider Nurse Practitioner Family
DX: M79.671 Pain in right foot (principal); M79.672 Pain in left foot; E66.01 Morbid (severe) obesity due to excess calories; Z68.41 Body mass index [BMI] 40.0-44.9, adult; M54.50 Low back pain, unspecified
CPT/HCPCS: 99204

== ENCOUNTER → 2024-10-11 16:09 | Outpatient (BNV) | payer OTHER, SELFPAY | PROVIDERS: PCP Internal Medicine; Visit Provider Radiology Diagnostic Radiology | DX: M79.671 Pain in right foot (principal); M79.672 Pain in left foot | CPT/HCPCS: 73630 ==